=== PATIENT | female | born 1955 | race Caucasian/White ===

== ENCOUNTER → 2017-06-26 | Outpatient (CLI) | payer BC ==
--- NOTE | 2017-06-27 14:10 | PCVCIMAG ---
APPROVED REPORT Exam: Stress Echocardiogram Indication: Palpitations Patient Location: Echo lab Stress Nurse: Julia Keita RN Status: routine Ht: 5 ft 7 in HR: 78 bpm BP: 104/60 mmHg Rhythm: NSR Procedure The patient underwent an Exercise Stress Test using the Gray Protocol. Blood pressure, heart rate, and EKG were monitored. An Echocardiogram was performed by master fire control technician in four stages in quad fashion. At peak stress, four selected images were obtained and placed side by side with resting images for comparison. Stress Test Details Stress Test: Exercise stress testing was performed using a Gray protocol. HR Resting HR: 78 bpmMax Heart Rate (APMHR): 160 bpm Max HR Achieved: 160 bpmTarget HR (85% APMHR): 136 bpm % of APMHR: 100 HR response to stress: Normal HR response to stress BP Resting BP: 104/60 mmHg Max BP: 158/60 mmHg ECG Resting ECG: Sinus Rhythm Stress ECG: Sinus Rhythm Clinical Reason for Termination: Completed protocol Exercise duration: 9 min 46 sec Highest Stage Achieved: Stage 4: 4.2 mph at 16% grade. Exercise capacity: 12.50 METs Stress ECG Conclusion 1. SUBJECTIVELY NEGATIVE FOR ISCHEMIA 2. ELECTROCARDIOGRAPHICALLY NEGATIVE FOR ISCHEMIA Pre-Stress Echo The resting Echocardiogram showed normal left ventricular contractility with an estimated Ejection Fraction of about 55-60%. Normal wall motion in all segments on baseline images. Post-Stress Echo The stress Echocardiogram showed normal left ventricular contractility with an estimated Ejection Fraction of about 60-65%. Normal augmentation of wall motion in all segments on post stress images. Clinical No clinical or ECG evidence for ischemia. Conclusion Clinical Response: Non-ischemic Exercise Capacity: Average Stress ECG Response: Non-ischemic Stress Echo Images: Non-ischemic 1. LOW RISK STUDY Other Information Study Quality: Adequate <Conclusion> 1. LOW RISK STUDY
== END | disposition home or self-care (01) ==
LOC: PCVCIMAG 15:19
PROVIDERS: ATTEND Internal Medicine
DX: E78.5 Hyperlipidemia, unspecified (principal); F17.200 Nicotine dependence, unspecified, uncomplicated; R00.0 Tachycardia, unspecified; R00.2 Palpitations; Z87.898 Personal history of other specified conditions; Z90.710 Acquired absence of both cervix and uterus
CPT/HCPCS: 93325; 93351